=== PATIENT | male | born 1970 | race Caucasian/White ===

== ENCOUNTER 2021-11-24 22:22 | Emergency (ER) | payer MEDICAID ==
[~2021-11-24] VITALS: Ht 172.7 cm; Wt 68.0 kg
[~2021-11-24 22:22] MED LIST: ACYCLOVIR 800800 M1; ALPRAZOLAM; BP med; DESYREL; DUREZOL5 ML; FISHOIL; HCTZ; LISINOPRIL10 MG; MISC; MULTIVITAMINS; NORCO 5-325 TA1 EACH PO; PREDNISONE 10 M10 M1; RANITIDINE 150150 MG; REQUIP; SEROQUEL PO; SERTRALINE HCL50 MG; TOBRADEX ST EYE5 ML OP; ZOLOFT
[2021-11-25] VITALS: BP 185/111
== END 2021-11-25 | disposition home or self-care (01) ==
LOC: M.ERS 22:22
DX: K91.841 Postprocedural hemorrhage of a digestive system organ or structure following other procedure (principal); F31.9 Bipolar disorder, unspecified; I10 Essential (primary) hypertension; Z79.891 Long term (current) use of opiate analgesic; Z79.1 Long term (current) use of non-steroidal anti-inflammatories (NSAID); Z79.899 Other long term (current) drug therapy

== ENCOUNTER 2021-11-25 07:23 | Emergency (ER) | payer MEDICAID ==
[~2021-11-25] VITALS: Ht 180.3 cm; Wt 85.7 kg
[2021-11-25 09:04] VITALS: BP 189/127
== END 2021-11-25 09:04 | disposition home or self-care (01) ==
LOC: M.ERS 07:23
DX: K91.840 Postprocedural hemorrhage of a digestive system organ or structure following a digestive system procedure (principal); I10 Essential (primary) hypertension; F31.9 Bipolar disorder, unspecified; Z79.899 Other long term (current) drug therapy